=== PATIENT | female | born 1955 | race Caucasian/White ===

== ENCOUNTER 2020-05-12 06:49 | Outpatient (REF) | payer OTHER, SELFPAY ==
[2020-05-12 07:08] LABS: COVID-19 Test Negative (Negative)
== END 2020-05-12 06:50 | disposition home or self-care (01) ==
LOC: HO.LAB 06:49
PROVIDERS: Visit Provider Internal Medicine
DX: Z20.828 Contact with and (suspected) exposure to other viral communicable diseases (principal)
CPT/HCPCS: 87635; C9803

== ENCOUNTER → 2020-07-25 10:49 | Outpatient (BNVA) | payer OTHER, SELFPAY | PROVIDERS: PCP Internal Medicine; Visit Provider Orthopaedic Surgery | DX: G56.02 Carpal tunnel syndrome, left upper limb (principal) | CPT/HCPCS: 99202 ==

== ENCOUNTER 2020-08-25 13:02 | Day surgery (SDC) | payer OTHER, SELFPAY ==
--- NOTE | 2020-08-25 13:01 | MHC.SHP ---
Pre-Procedural Eval Section B Chief Complaint: carpal tunnel syndrome Allergies: Allergies Allergy/AdvReac Type Severity Reaction Status Date / Time seasonal Allergy Unknown December Verified 07/25/20 10:54 ENVIRONMENTAL Allergy Unknown SNEEZING Uncoded 01/28/20 15:41 SEASONAL ALLERGIES Allergy Unknown SNEEZING Uncoded 01/28/20 15:41 Plan I have reviewed the history and physical and performed a pertinent physical examination on my patient. No changes have occurred unless specified.
--- NOTE | 2020-08-25 13:01 | W.PM.OPN ---
Operative Note Operative Note Date of Service: 08/25/20 Narrative: Preop diagnosis: 1. Left Carpal tunnel syndrome Postop diagnosis: same Procedure: 1. Left Carpal tunnel release Surgeon: Sophia Tony MD Anesthesia: local block using 1% lidocaine with epinephrine Findings: Thickened transverse carpal ligament. EBL: Less than 5 mL Specimens: None Complications: None Disposition: Brought to recovery room in stable condition Plan: Follow-up for 7-10 days for wound check and suture removal Indications: The patient is 64 years old, with left carpal tunnel syndrome that has been unresponsive to nonoperative management. The risks and benefits of operative treatment including but not limited to risk of damage to blood vessels, nerves, tendons, infection, persistent pain, persistent symptoms, or possible need for additional surgery were discussed with the patient and the patient wishes to proceed with surgery. Procedure: Once consent was obtained a local block was performed using a combination of 1% lidocaine with epinephrine. The patient was then brought back to the operating suite and placed on the operative table in supine position. A tourniquet was applied to the proximal aspect of the left upper extremity and the limb was prepped and draped in a standard surgical fashion. Once assured that we had a good block, a 1.5 cm longitudinal incision was made centered over the carpal tunnel. The incision was made through the skin to the subcutaneous tissues using a #15 blade. Dissection was made down to the level of the transverse carpal ligament with care being taken to protect the palmar cutaneous nerve. Once the transverse carpal ligament was clearly visualized, a longitudinal incision was made in the transverse carpal ligament 1st using a #15 blade, then using tenotomy scissors under direct visualization. Care was taken to look for and protect the motor branch of the median nerve when seen in this area. Once satisfied with our carpal tunnel release the wound was copiously irrigated with normal saline and hemostasis was obtained with a brief period of local pressure. The skin edges were reapproximated with some 5.0 nylon suture material and a sterile dressing was applied. The patient appears to have tolerated the procedure well and with no complications. All digits were well vascularized at the conclusion of the case.
[2020-08-25 13:09] VITALS: BP 150/69; PULSE 82; RESP 16; TEMP 36.6; O2SAT 99; BMI 26.5
[2020-08-25 14:09] VITALS: BP 182/89; PULSE 87; RESP 16; O2SAT 99
== END 2020-08-25 14:22 | disposition home or self-care (01) ==
PROVIDERS: PCP Internal Medicine; Visit Provider Orthopaedic Surgery
PROC: (CPT 64721; principal; 2020-08-25 14:00)
DX: G56.02 Carpal tunnel syndrome, left upper limb (principal)
CPT/HCPCS: 64721

== ENCOUNTER → 2020-09-05 09:25 | Outpatient (BNVA) | payer OTHER, SELFPAY | PROVIDERS: Visit Provider Orthopaedic Surgery ==

== ENCOUNTER 2021-08-03 06:49 | Outpatient (REF) | payer OTHER, SELFPAY ==
[2021-08-03 07:06] LABS: MANUAL DIFF FLAG NO
[2021-08-03 08:09] LABS: Basophils Absolute Auto 0.1 X10*3/uL (0.0-0.2); Basophils Percent Auto 0.9 % (0-2); Eosinophils Absolute Auto 0.2 X10*3/uL (0.0-0.4); Eosinophils Percent Auto 2.8 % (0-4); Hematocrit 44.4 % (37.0-47.0); Hemoglobin 14.1 g/dl (12.0-16.0); Imm Gran Abs Auto 0.01 X10*3/uL (0.00-0.03); Imm Gran Pct Auto 0.1 % (0.0-0.4); Lymphocytes Absolute Auto 1.7 X10*3/uL (1.2-4.9); Lymphocytes Percent Auto 24.9 % (20-40); Mean Corpuscular HGB Conc 31.8 g/dl (31.0-35.0); Mean Corpuscular Hemoglobin 28.8 pg (27.0-33.0); Mean Corpuscular Volume 90.6 fL (80.0-98.0); Mean Platelet Volume 9.9 fL (9.4-12.3); Monocytes Absolute Auto 0.6 X10*3/uL (0.1-1.2); Monocytes Percent Auto 9.3 % (2-11); Neutrophils Absolute Auto 4.2 x10*3/uL (2.0-8.3); Platelet Count 273 X10*3/uL (160-400); Red Cell Distribution Width 12.6 % (11.0-16.0); White Blood Count 6.8 X10*3/uL (4.8-10.8)
[2021-08-03 08:37] LABS: Alanine Aminotransferase 19 U/L (0-31); Alkaline Phosphatase 61 U/L (39-117); Anion Gap 12 (12-20); Aspartate Amino Transferase 21 U/L (5-31); Bilirubin Total 0.7 mg/dL (0.0-1.0); Blood Urea Nitrogen 19 mg/dL (9-16); Calcium 9.8 mg/dL (8.4-10.2); Carbon Dioxide 27 mmol/L (22-29); Chloride 108 mmol/L (96-108); Cholesterol 216 mg/dL; Estimated Glomerular Filt Rate > 60; Glucose Fasting 81 mg/dL (60-99); HDL Cholesterol 50 mg/dL; LDL Cholesterol Calculated 145 mg/dl; Potassium 4.7 mmol/L (3.3-5.1); Sodium 142 mmol/L (135-145); Total Protein 6.5 g/dL (6.5-8.0); Triglycerides 109 mg/dL
== END 2021-08-03 06:50 | disposition home or self-care (01) ==
LOC: HO.LAB 06:49
PROVIDERS: PCP Internal Medicine; Visit Provider Nurse Practitioner Family
DX: E78.00 Pure hypercholesterolemia, unspecified (principal); I10 Essential (primary) hypertension
CPT/HCPCS: 36415; 80053; 80061; 85025

== ENCOUNTER 2021-08-21 07:32 | Outpatient (REF) | payer OTHER, SELFPAY ==
--- NOTE | ~2021-08-21 | MM_ITS ---
EXAMINATION: MM SCREENING DIGITAL BREAST TOMOSYNTHESIS, BILATERAL CLINICAL INFORMATION: Screening. Asymptomatic. The lifetime risk of breast cancer based on the Tyrer-Cuzick Model is 4%. COMPARISON: Mammography: 11/16/2019, 11/10/2018, 09/11/2017 TECHNIQUE: Digital breast tomosynthesis is performed in both the craniocaudal and mediolateral oblique views along with computer-aided detection (CAD). Synthesized 2D images are generated from the tomosynthesis. FINDINGS: There are scattered areas of fibroglandular density (ACR BI-RADS breast composition Category b). There are no significant masses, abnormal calcifications, or other abnormalities. Parenchymal pattern is similar to prior studies. There is no developing density or architectural abnormality. The axilla and skin contours are unremarkable. No significant changes. MM/MM tomosynthesis screening BI IMPRESSION: No mammographic evidence of malignancy. ASSESSMENT: BI-RADS 1: Negative RECOMMENDATION: Routine annual mammography screening. This patient's information was entered into a reminder system with a target due date for their next mammogram.
== END 2021-08-21 07:33 | disposition home or self-care (01) ==
LOC: HO.MAMMO 07:32
PROVIDERS: Visit Provider Nurse Practitioner Family
DX: Z12.31 Encounter for screening mammogram for malignant neoplasm of breast (principal)
CPT/HCPCS: 77063; 77067

== ENCOUNTER 2022-02-01 11:10 | Outpatient (REF) | payer OTHER, SELFPAY ==
[2022-02-01 12:18] LABS: Hematocrit 42.9 % (37.0-47.0); Hemoglobin 13.8 g/dl (12.0-16.0); Mean Corpuscular HGB Conc 32.2 g/dl (31.0-35.0); Mean Corpuscular Volume 90.1 fL (80.0-98.0); Mean Platelet Volume 9.9 fL (9.4-12.3); Platelet Count 281 X10*3/uL (160-400); Red Blood Count 4.76 X10*6/uL (4.20-5.50); Red Cell Distribution Width 12.8 % (11.0-16.0)
[2022-02-01 12:50] LABS: Alanine Aminotransferase 29 U/L (0-31); Albumin Level 4.1 g/dL (3.5-5.0); Alkaline Phosphatase 62 U/L (39-117); Anion Gap 14 (12-20); Aspartate Amino Transferase 25 U/L (5-31); Bilirubin Direct 0.2 mg/dL (0.0-0.5); Bilirubin Total 0.4 mg/dL (0.0-1.0); Blood Urea Nitrogen 20 mg/dL (9-16); Calcium 9.6 mg/dL (8.4-10.2); Carbon Dioxide 29 mmol/L (22-29); Chloride 103 mmol/L (96-108); Cholesterol 208 mg/dL; Estimated Glomerular Filt Rate > 60; Glucose Random 85 mg/dL (60-115); HDL Cholesterol 41 mg/dL; LDL Cholesterol Calculated 123 mg/dl; Sodium 142 mmol/L (135-145); Total Protein 6.6 g/dL (6.5-8.0); Triglycerides 221 mg/dL
[2022-02-01 13:05] LABS: Appearance Urine Clear; Color Urine Yellow; Glucose Urine UA Negative (Negative); Leukocyte Esterase Urine Small (1+) (Negative); Nitrite Urine Negative (Negative); UMIC TRIGGER UA YES; Urine Blood Negative (Negative); Urine Ketones Negative (Negative); Urine Protein Negative (Neg-Trace)
[2022-02-01 13:19] LABS: Bacteria Urine None Seen (None Seen); Hyaline Casts Urine 0-2 /LPF (0-2); RBC Urine 0-2 /HPF (0-2); Squamous Epithelial Cell Urine 0-2 /HPF (0-2); WBC Urine 0-5 /HPF (0-5)
== END 2022-02-01 11:11 | disposition home or self-care (01) ==
LOC: HO.LAB 11:10
PROVIDERS: PCP Internal Medicine; Visit Provider Internal Medicine
DX: Z01.818 Encounter for other preprocedural examination (principal)
CPT/HCPCS: 36415; 80048; 80061; 80076; 81001; 81003; 84443; 85027

== ENCOUNTER 2022-11-08 07:43 | Outpatient (REF) | payer OTHER, SELFPAY ==
--- NOTE | ~2022-11-08 | MM_ITS ---
EXAMINATION: MM SCREENING DIGITAL BREAST TOMOSYNTHESIS, BILATERAL CLINICAL INFORMATION: Screening. Asymptomatic. The lifetime risk of breast cancer based on the Tyrer-Cuzick Model is 4.2%. COMPARISON: Mammography: This study is compared to prior exam same back to 2019. TECHNIQUE: Digital breast tomosynthesis is performed in both the craniocaudal and mediolateral oblique views along with computer-aided detection (CAD). Synthesized 2D images are generated from the tomosynthesis. FINDINGS: There are scattered areas of fibroglandular density (ACR BI-RADS breast composition Category b). There are no significant masses, abnormal calcifications, or other abnormalities. MM/MM tomosynthesis screening BI IMPRESSION: No evidence of malignancy ASSESSMENT: BI-RADS BI-RADS 1 - Negative RECOMMENDATION: Routine annual mammography screening. 1 year F/U This patient's information was entered into a reminder system with a target due date for their next mammogram.
== END 2022-11-08 07:44 | disposition home or self-care (01) ==
LOC: HO.MAMMO 07:43
PROVIDERS: PCP Internal Medicine; Visit Provider Internal Medicine
DX: Z12.31 Encounter for screening mammogram for malignant neoplasm of breast (principal)
CPT/HCPCS: 77063; 77067

== ENCOUNTER → 2022-11-08 07:45 | Outpatient (BNV) | payer OTHER, SELFPAY | PROVIDERS: PCP Internal Medicine; Visit Provider Radiology Diagnostic Radiology | DX: Z12.31 Encounter for screening mammogram for malignant neoplasm of breast (principal) | CPT/HCPCS: 77063; 77067 ==

== ENCOUNTER 2024-07-01 07:37 | Outpatient (AMB) | payer MEDICARE, SELFPAY ==
--- NOTE | 2024-07-01 07:38 | MHC.PC.OV ---
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 The left breast mass is located at the 9 o'clock position, prompting the need for further diagnostic evaluation. Additionally, the patient reports chronic low back pain that has been present for an unspecified duration. This pain radiates to the left leg and is associated with left leg numbness and tingling. She also experiences left knee pain. There is no reported history of fever, bowel, or bladder incontinence, which often accompany significant radicular symptoms. Mother few months ago and she has mild major depression symptoms with anxiety. She was crying today. - Last mammogram conducted in 2022. - Bone density study to be ordered. - Declined pneumonia and flu vaccines. - Up to date with tetanus vaccination. - Last colonoscopy in 2017; next colonoscopy is scheduled for 2027. [facility] Medical History (Updated 07/01/24 @ 09:56 by Lottie Vargas MD) Asthma Trigger finger of right hand Carpal boss of right wrist Surgical History (Updated 07/01/24 @ 07:56 by Lottie Vargas MD) History of carpal tunnel release of both wrists History of cataract surgery Hx of colonoscopy History of bladder suspension procedure H/O tubal ligation Family History (Updated 07/01/24 @ 07:57 by Lottie Vargas MD) Mother A-fib Father No problems noted. Social History (Updated 07/01/24 @ 07:57 by Lottie Vargas MD) Housing: House Alcohol intake: current Alcohol intake frequency: holidays/special occasions only Alcohol type: wine Patient Tobacco Use Status: Never used Tobacco e-Cigarette/Vaping Use: Never Used service: No Current occupational status: employed Current occupation: right hand /RN [employer] Cognitive needs: No Hearing needs: No Vision needs: Yes Questionnaire PHQ-9 Over the last 2 weeks, how often have you been bothered by any of the following problems? 1. Little interest or pleasure in doing things: not at all 2. Feeling down, depressed, or hopeless: several days 3. Trouble falling or staying asleep, or sleeping too much: several days 4. Feeling tired or having little energy: several days 5. Poor appetite or overeating: not at all 6. Feeling bad about yourself - or that you are a failure or have let yourself or your family down: not at all 7. Trouble concentrating on things, such as reading the newspaper or watching television: not at all 8. Moving or speaking so slowly that other people could have noticed. Or the opposite - being so fidgety or restless that you have been moving around a lot more than usual: not at all 9. Thoughts that you would be better off or of hurting yourself in some way: not at all Total score: 3 Depression Screening Interpretation: Positive Depression Screening Follow-up: Existing condition and Follow-up Visit Requested Depression Screening Done: Yes 03614 - PHQ-9 Billing: Yes Source: Developed by Drs. Marvel Torres, Mary Bhat, Marito Amos and colleagues, with an educational [place] from [employer]. Thrive Questionnaire Date Thrive assessed: 07/01/24 I am a: Patient What is your living situation today?: I have a steady place to live Within the past 12 months, did the food you bought not last and you didn't have the money to get more?: Never true Within the past 12 months, did you worry whether your food would run out before you got money to buy more?: Never true Do you have trouble paying for medicines?: No Do you have trouble getting transportation to medical appointments?: No Do you have trouble paying your heating and electricity bill?: No Do you have trouble taking care of your child, family member or friend?: No Do you have trouble with day-to-day activities such as bathing, preparing meals, shopping, managing finances, etc.?: No Are you currently unemployed and looking for a job?: No Are you interested in more education?: No Please select the resources that you would like help with: None Currently or been in a relationship where the following occur: No concerns reported THRIVE Score: 0 AUDIT C Alcohol Use Questionnaire (AUDIT-C) 1. How often do you have a drink containing alcohol?: Monthly or less 2. How many drinks containing alcohol do you have on a typical day when you are drinking?: 1 or 2 3. How often do you have six or more drinks on one occasion?: Never Total Score: 1 Score Reviewed/Action Taken: No JAI-7 AMB Questionnaire JAI-7 Date JAI - 7 assessed: 07/01/24 Feeling nervous, anxious, or on edge: 1 = Several days Not being able to stop or control worryin = Not at all Worrying too much about different things: 1 = Several days Trouble relaxin = Several days Being so restless that it is hard to sit still: 0 = Not at all Becoming easily annoyed or irritable: 0 = Not at all Feeling afraid as if something awful might happen: 0 = Not at all Total JAI-7 score (0-4 normal; 5-9 mild; 10-14 moderate; 15-21 severe): 3 Source: Developed by Drs. Marvel Torres, Mary Bhat, Marito Amos and colleagues, with an educational virignia from [employer]. JAI-7 Assessment Billing JAI-7 Assessment Tool: JAI-7 Assessment 34687 Review of Systems Const All systems reviewed & are unremarkable except as noted in HPI and below ENT Denies change in voice, Denies nasal discharge and Denies sinus pain Card Denies chest pain at rest, Denies chest pain with activity, Denies edema, Denies irregular heart rhythm, Denies claudication, Denies dyspnea, Denies dyspnea on exertion, Denies orthopnea, Denies paroxysmal nocturnal dyspnea and Denies slow heart rate Resp Denies cough, Denies dyspnea and Denies dyspnea on exertion GI Denies abdominal pain, Denies change in bowel habits, Denies excessive flatus, Denies nausea and Denies vomiting Musc Reports back pain, Reports arthralgias, Reports numbness, Reports radiating pain into limb and Reports tingling Neuro Reports numbness and Reports tingling Psych Reports abnormal sleep pattern and Reports depression Physical exam (Primary Care) Vital Signs: Last Vital Signs BP 150/80 H 07/01/24 07:46 Care Plan Goal for BP management: Recheck blood pressure with nurse navigator in 3 weeks BMI result Body Mass Index 28.0 Tobacco/Smoking Status: Tobacco use Status Tobacco use date assessed 02/01/22 07/01/24 07:40 Patient Tobacco Use Status Never used Tobacco 07/01/24 07:57 Tobacco use type 12/12/21 13:13 e-Cigarette/Vaping Use Never Used 07/01/24 07:57 PHQ-9: PHQ-9 Score PHQ-9: Total score 3 07/01/24 08:08 Depression Screening Interpretation: Positive Depression Screening Follow-up: Existing condition and Follow-up Visit Requested Thrive Assessment: Date of Thrive Assessment Date Thrive assessed 07/01/24 07/01/24 07:40 Currently or been in a relationship where the following occur: No concerns reported HENMT Head: Yes normal to inspection, Yes normocephalic and Yes atraumatic Ears: external ears normal Eyes General: appearance normal, both eyes and all related structures Eyelids: Yes eyelids normal Conjunctivae: conjunctivae normal Neck Neck: Yes normal visual inspection and Yes supple Chest Breast/axilla inspection: normal inspection of the axillae Breast/axilla palpation: normal palpation of the axillae and abnormal palpation of the breast (Left breast mass at 09:00 o'clock) Resp Effort & Inspection: normal respiratory effort Auscultation: clear to auscultation bilaterally Cardio Jugular venous distension: no JVD Rate: regular rate Rhythm: regular rhythm Heart sounds: S1 normal heart sound present and S2 normal heart sound present GI Inspection: Yes normal to inspection Palpation (GI): Soft to palpation and nontender Auscultation: normal bowel sounds Skin General skin exam: no rashes or lesions noted Neuro General: no focal motor deficits Extrem General: Yes full ROM Psych Appearance: grossly normal Office Procedures Flu Questionnaire Does the patient have a severe egg allergy?: No Immunizations Fluarix Triv [id number] (PF) 45 mcg (15 mcg x 3)/0.5 mL IM syringe Performing Provider: Lottie Vargas MD [facility] Documented (not given) by: RAMA Swann on 07/01/24 08:08 Reason Not Given: Patient Refused Coding Level of Care Code Est Pt Level 4 (43622) Est Pt Prev Care >65y(36628) Diagnoses Physical exam Z00.00 Left sided sciatica M54.32 Chronic pain of left knee M25.562; G89.29 Chronicity: chronic Mass of upper inner quadrant of left breast N63.22 Breast mass location: upper inner quadrant Mild major depression, single episode F32.0 Additional Codes JAI-7 Assessment Billing - JAI-7 Assessment Tool: JAI-7 Assessment 79219 ([id number]) PHQ-9 - 21536 - PHQ-9 Billing: Yes ([id number]) Time Spent (min) 40 Assessment & Plan Assessment & Plan (1) Physical exam: Comment: Colonoscopy with Dr. Álvarez on 12/2017. Next f/u in 10 years. Eye exam 09/2021 Dental exam 09/2021 Due mammo, pap Code(s): Z00.00 - Encounter for general adult medical examination without abnormal findings Category: Medical (2) Left sided sciatica: Code(s): M54.32 - Sciatica, left side Category: Medical (3) Left knee pain: Code(s): M25.562 - Pain in left knee Category: Medical Qualifiers: Chronicity: chronic Qualified Code(s): M25.562 - Pain in left knee; G89.29 - Other chronic pain (4) Left breast mass: Code(s): N63.20 - Unspecified lump in the left breast, unspecified quadrant Category: Medical Qualifiers: Breast mass location: upper inner quadrant Qualified Code(s): N63.22 - Unspecified lump in the left breast, upper inner quadrant (5) Mild major depression, single episode: Code(s): F32.0 - Major depressive disorder, single episode, mild Category: Medical Plan - Order a diagnostic mammogram for further evaluation of the left breast mass. - Initiate treatment with gabapentin for one month to assess pain improvement related to low back pain with radiculopathy. - Order x-rays for assessment of structural issues contributing to left knee pain. - Discuss additional imaging or follow-up as necessary based on the results. Patient was informed and verbally consented to the use of an ambient scribe for clinic note documentation during this visit. I have discussed with the patient the plan to obtain a diagnostic mammogram due to the presence of the left breast mass. The importance of ruling out any significant pathology was emphasized. For the complaints of low back pain with radiculopathy, I have decided to initiate gabapentin to address neuropathic components of the pain. We also plan to assess the left knee pain with x-rays to elucidate any underlying joint or degenerative issues. The patient was informed of the need to follow up on the outcomes of these investigations and possible adjustments to her treatment plan. Orders: Orders Influenza [id number] Immunization Today Z23 - Encounter for immunization MM diagnostic mammo BI Today N63.20 - Unspecified lump in the left breast, unspecified quadrant US breast LT complete Today N63.20 - Unspecified lump in the left breast, unspecified quadrant XR knee LT 2V Today M25.562 - Pain in left knee XR DEXA axial skeleton Today Z78.0 - Asymptomatic menopausal state Comprehensive [place]. Panel Fast Today Z00.00 - Encounter for general adult medical examination without abnormal findings Lipid Panel Today Z00.00 - Encounter for general adult medical examination without abnormal findings XR lumbar spine 2-3V Today M54.32 - Sciatica, left side Medications: New gabapentin 100 mg PO BEDTIME 30 caps 0RF 30 days M54.32 - Sciatica, left side Patient Instructions: - Schedule and attend the diagnostic mammogram. - Begin taking gabapentin as directed and monitor for any changes in pain status. - Undergo x-rays for the left knee and report any worsening of symptoms. - Keep up to date with health maintenance screenings and consider vaccinations as recommended.
[2024-07-01 07:46] VITALS: BP 150/80; BMI 28.0
== END 2024-07-01 08:06 | disposition home or self-care (01) ==
PROVIDERS: PCP Internal Medicine; Visit Provider Internal Medicine
DX: Z00.00 Encounter for general adult medical examination without abnormal findings (principal); M54.32 Sciatica, left side; M25.562 Pain in left knee; F32.0 Major depressive disorder, single episode, mild; G89.29 Other chronic pain; N63.22 Unspecified lump in the left breast, upper inner quadrant; Z23 Encounter for immunization

== ENCOUNTER → 2024-07-01 07:37 | Outpatient (BNVA) | payer MEDICARE, SELFPAY | PROVIDERS: PCP Internal Medicine; Visit Provider Internal Medicine | DX: Z00.01 Encounter for general adult medical examination with abnormal findings (principal); M54.32 Sciatica, left side; M25.562 Pain in left knee; G89.29 Other chronic pain; N63.22 Unspecified lump in the left breast, upper inner quadrant; F32.0 Major depressive disorder, single episode, mild | CPT/HCPCS: 96127; 99212; 99397 ==

== ENCOUNTER 2024-07-07 06:41 | Outpatient (REF) | payer MEDICARE, SELFPAY ==
--- NOTE | ~2024-07-07 | XR_ITS ---
CLINICAL HISTORY: M25.562 - Pain in left knee Exam: AP and lateral views of the left knee. Comparison: None. Findings: Bony alignment is anatomic. No fracture or joint effusion. Moderate degenerative change of the patellofemoral joint with joint space narrowing and osteophyte formation. Medial and lateral compartments are well-maintained. Impression: Moderate patellofemoral joint DJD. This document has been electronically signed by: Sunny Melchor MD on 07/07/2024 07:22:59
--- NOTE | ~2024-07-07 | XR_ITS ---
CLINICAL HISTORY: M54.32 - Sciatica, left side Exam: AP, lateral, and spot lateral views of the lumbar spine. Comparison: None. Findings: Minimal convex right upper lumbar curvature. Lateral view demonstrates 3 mm of anterolisthesis of L4 on L5. No acute fracture. Moderate degenerative disc disease at T12-L1 and L1-2 with disc space narrowing and osteophytic ridging. Moderate facet joint degenerative change within the lower lumbar spine. Impression: Chronic changes as above. No acute fracture. If the patient has persistent or worsening left radiculopathy, MRI of the lumbar spine would be suggested to evaluate for neural impingement. This document has been electronically signed by: Sunny Melchor MD on 07/07/2024 07:21:59
[2024-07-07 08:35] LABS: Alanine Aminotransferase 27 U/L (0-31); Albumin Level 4.1 g/dL (3.5-5.0); Alkaline Phosphatase 70 U/L (39-117); Anion Gap 11 (12-20); Aspartate Amino Transferase 27 U/L (5-31); Bilirubin Total 0.4 mg/dL (0.0-1.0); Blood Urea Nitrogen 16 mg/dL (9-16); Calcium 9.7 mg/dL (8.4-10.2); Carbon Dioxide 25 mmol/L (22-29); Chloride 110 mmol/L (96-108); Cholesterol 208 mg/dL (<200); Estimated Glomerular Filt Rate > 60; Glucose Fasting 87 mg/dL (60-99); HDL Cholesterol 41 mg/dL (>40); LDL Cholesterol Calculated 137 mg/dL (<100); Sodium 142 mmol/L (135-145); Total Protein 7.3 g/dL (6.5-8.0); Triglycerides 150 mg/dL (<150)
== END 2024-07-07 06:42 | disposition home or self-care (01) ==
LOC: HO.XRAY 06:41
PROVIDERS: PCP Internal Medicine; Visit Provider Internal Medicine
DX: M25.562 Pain in left knee (principal); M54.32 Sciatica, left side; Z00.00 Encounter for general adult medical examination without abnormal findings
CPT/HCPCS: 36415; 72100; 73560; 80053; 80061

== ENCOUNTER → 2024-07-07 06:50 | Outpatient (BNV) | payer MEDICARE, SELFPAY | PROVIDERS: PCP Internal Medicine; Visit Provider Radiology Diagnostic Radiology | DX: M54.32 Sciatica, left side (principal); M17.12 Unilateral primary osteoarthritis, left knee | CPT/HCPCS: 72100; 73560 ==

== ENCOUNTER 2024-08-06 08:02 | Outpatient (REF) | payer MEDICARE, SELFPAY ==
--- NOTE | ~2024-08-06 | MM_ITS ---
EXAMINATION: DXA BONE DENSITY AXIAL HISTORY: Estrogen deficiency TECHNIQUE: [employer] Dual energy absorptiometry (DEXA) of the lumbar spine, total left hip, and femoral neck was performed. COMPARISON: There are no prior studies for comparison. FINDINGS: The bone mineral density of the lumbar spine is 0.838 with a T-score of -2.9, and a Z-score of -1.4. This is indicative of osteoporosis. The bone mineral density of the left total hip is 0.798 with a T-score of -1.7, and a Z-score of -0.5. This is indicative of osteopenia. The bone mineral density of the left femoral neck is 0.696 with a T-score of -2.5, and a Z-score of -1.0. This is indicative of osteoporosis. MM/XR DEXA axial skeleton IMPRESSION: Based on bone mineral density, and according to World Health Organization (WHO) criteria, the diagnosis is consistent with osteoporosis. All bone density values are in grams per centimeter squared (g/cm2). Statistically, 68% of repeat scans fall within 1 SD (+/- 0.010 g/cm2 for AP spine L1-L4) and 1 SD (+/- 0.012 g/cm2 for femur total) FRAX is a trademark of the [employer]'s [place] [employer] Metabolic [employer] Disease, a World Health Organization (WHO) Collaborating Center. Electronically signed by: Marvel Fuller MD 08/06/2024 08:44 AM EDT
== END 2024-08-06 08:03 | disposition home or self-care (01) ==
LOC: HO.MAMMO 08:02
PROVIDERS: PCP Internal Medicine; Visit Provider Internal Medicine
DX: Z13.820 Encounter for screening for osteoporosis (principal); Z78.0 Asymptomatic menopausal state
CPT/HCPCS: 77080

== ENCOUNTER → 2024-08-06 08:07 | Outpatient (BNV) | payer MEDICARE, SELFPAY | PROVIDERS: PCP Internal Medicine; Visit Provider Radiology Diagnostic Radiology | DX: E28.39 Other primary ovarian failure (principal) | CPT/HCPCS: 77080 ==

== ENCOUNTER 2024-08-10 08:20 | Outpatient (REF) | payer MEDICARE, SELFPAY ==
--- NOTE | ~2024-08-10 | MM_ITS ---
EXAMINATION: MM DIAGNOSTIC DIGITAL BREAST TOMOSYNTHESIS, BILATERAL CLINICAL INFORMATION: Patient had a left breast lump at 9:00 and went to see her PCP since then the area came to head and popped and patient cannot feel any palpable lump. No palpable lump is felt today. COMPARISON: Mammography: Comparison is made with relevant prior exams. TECHNIQUE: Digital breast mammography with tomosynthesis is performed in both the craniocaudal and mediolateral oblique views along with computer-aided detection (CAD). FINDINGS: There are scattered areas of fibroglandular density (ACR BI-RADS breast composition Category b). There are no significant masses, abnormal calcifications, or other abnormalities. Results are provided to the patient at time of visit by the technologist. MM/MM tomosynthesis diagnostic BI IMPRESSION: No mammographic abnormality bilateral breasts. Patient could not feel any palpable lump today therefore no ultrasound was performed. If patient feels palpable lump a diagnostic ultrasound can be ordered and performed. ASSESSMENT: BI-RADS BI-RADS 1 - Negative RECOMMENDATION: 1 year F/U This patient's information was entered into a reminder system with a target due date for their next mammogram. Electronically signed by: Samina Castellano DO 08/10/2024 09:04 AM EDT
== END 2024-08-10 08:21 | disposition home or self-care (01) ==
LOC: HO.MAMMO 08:20
PROVIDERS: PCP Internal Medicine; Visit Provider Internal Medicine
DX: N63.25 Unspecified lump in the left breast, overlapping quadrants (principal)
CPT/HCPCS: 77062; 77066

== ENCOUNTER → 2024-08-10 08:30 | Outpatient (BNV) | payer MEDICARE, SELFPAY | PROVIDERS: PCP Internal Medicine; Visit Provider Internal Medicine | DX: N63.25 Unspecified lump in the left breast, overlapping quadrants (principal) | CPT/HCPCS: 77066; G0279 ==

== ENCOUNTER 2024-08-13 08:34 | Emergency (ER) | payer MEDICARE, SELFPAY ==
[2024-08-13 08:42] VITALS: BP 136/65; PULSE 117; RESP 20; TEMP 35.8; O2SAT 98; BMI 28.3
[2024-08-13 08:58] LABS: MANUAL DIFF FLAG NO
[2024-08-13 09:02] LABS: Basophils Absolute Auto 0.1 X10*3/uL (0.0-0.2); Basophils Percent Auto 0.4 % (0-2); Eosinophils Absolute Auto 0.1 X10*3/uL (0.0-0.4); Eosinophils Percent Auto 0.7 % (0-4); Hematocrit 44.6 % (37.0-47.0); Hemoglobin 15.1 g/dl (12.0-16.0); Imm Gran Abs Auto 0.07 X10*3/uL (0.00-0.03); Imm Gran Pct Auto 0.4 % (0.0-0.4); Lymphocytes Absolute Auto 1.2 X10*3/uL (1.2-4.9); Mean Corpuscular HGB Conc 33.9 g/dl (31.0-35.0); Mean Corpuscular Hemoglobin 29.3 pg (27.0-33.0); Mean Corpuscular Volume 86.4 fL (80.0-98.0); Mean Platelet Volume 9.3 fL (9.4-12.3); Monocytes Absolute Auto 0.9 X10*3/uL (0.1-1.2); Monocytes Percent Auto 5.5 % (2-11); Neutrophils Absolute Auto 14.2 x10*3/uL (2.0-8.3); Platelet Count 246 X10*3/uL (160-400); Red Blood Count 5.16 X10*6/uL (4.20-5.50); Red Cell Distribution Width 12.9 % (11.0-16.0); White Blood Count 16.5 X10*3/uL (4.8-10.8)
[2024-08-13 09:16] LABS: Alanine Aminotransferase 23 U/L (0-31); Albumin Level 3.7 g/dL (3.5-5.0); Alkaline Phosphatase 69 U/L (39-117); Anion Gap 11 (12-20); Aspartate Amino Transferase 24 U/L (5-31); Bilirubin Direct 0.2 mg/dL (0.0-0.5); Bilirubin Total 0.5 mg/dL (0.0-1.0); Blood Urea Nitrogen 24 mg/dL (9-16); Calcium 9.3 mg/dL (8.4-10.2); Carbon Dioxide 23 mmol/L (22-29); Chloride 109 mmol/L (96-108); Creatinine Clr Calc Pharmacy 38.8; Estimated Glomerular Filt Rate 41; Glucose Random 128 mg/dL (60-115); Lipase 19 U/L (8-78); Potassium 3.5 mmol/L (3.3-5.1); Sodium 139 mmol/L (135-145); Total Protein 6.6 g/dL (6.5-8.0)
--- NOTE | 2024-08-13 09:47 | ED_ITS ---
HPI - Nausea/Vomiting/Diarrhea General Chief complaint: Nausea/Vomiting/Diarrhea Stated complaint: weakness diarrhea Time Seen by Provider: 08/13/24 09:36 Source: patient, RN notes reviewed and old records reviewed Mode of arrival: ambulatory History of Present Illness ED Provider: Dori Eisenberg PA-C HPI Narrative: 68-year-old female with a past medical history of asthma, presenting to the ED complaining of watery nonbloody diarrhea x 3 days. Admits was being treated for UTI on Keflex since Saturday, however develop diarrhea, & self stopped antibiotic. Reports lower abdominal discomfort / cramping and tenesmus, with generalized fatigue, nausea, and vomiting x2. denies fever, chills, dysuria/hematuria. Related Data Previous Rx's ?Medication ?Instructions ?Recorded gabapentin 100 mg capsule 100 mg PO BEDTIME 30 days #30 caps 07/01/24 losartan 25 mg tablet 25 mg PO DAILY 30 days #30 tabs 07/06/24 vancomycin 125 mg capsule 125 mg PO QID 10 days #40 caps 08/13/24 (Vancocin) Allergies Allergy/AdvReac Type Severity Reaction Status Date / Time Seasonal Allergies Allergy Unknown Sneezing Verified 08/13/24 08:46 Review of Systems 2 Review of Systems: Yes all other systems are reviewed and are negative Constitutional: Constitutional: Reports as per [facility] Past Medical History Attestation statement: The following information was validated with the patient. Source: old records reviewed Medical History Asthma Trigger finger of right hand Carpal boss of right wrist Surgical History History of carpal tunnel release of both wrists History of cataract surgery Hx of colonoscopy History of bladder suspension procedure H/O tubal ligation Family History Family History Mother A-fib Father No problems noted. Social History Social History Housing: House Alcohol intake: current Alcohol intake frequency: holidays/special occasions only Alcohol type: wine Patient Tobacco Use Status: Never used Tobacco e-Cigarette/Vaping Use: Never Used Advance Directives: Yes Advance Directives Information Provided: No Advance Directives on File: No Do you have a plan to hurt others: No Plan service: No Current occupational status: employed Current occupation: right hand /RN [employer] Cognitive needs: No Hearing needs: No Vision needs: Yes Physical Exam 2 Vital Signs: Vital Signs: Last Vital Signs Temp 99.8 F 08/13/24 14:29 Pulse 87 08/13/24 14:29 Resp 20 08/13/24 14:29 BP 127/60 08/13/24 14:29 Pulse Ox 97 08/13/24 14:29 O2 Del Method Room Air 08/13/24 14:08 BMI result Body Mass Index 28.3 Const: General: cooperative, healthy appearing and no acute distress O rientation/consciousness: patient oriented x3 Limitations: no limitations HEENT: Head: Yes normal to inspection and Yes atraumatic Ears: hearing grossly normal bilaterally General nose exam: Normal external nose present Face and sinus: Yes normal facial exam Eyes: General: appearance normal, both eyes and all related structures EOM: EOMs intact bilaterally Neck: Neck: Yes normal visual inspection and Yes no meningeal signs Resp: Effort & Inspection: normal respiratory effort and no respiratory distress Auscultation: clear to auscultation bilaterally Cardio: Rate: regular rate and tachycardic Heart sounds: S1 normal heart sound present and S2 normal heart sound present GI: Inspection: Yes normal to inspection Palpation (GI): Soft to palpation, nontender, no guarding and not rigid : General: Yes no CVA tenderness Back/Spine/Pelvis: Back: no CVA tenderness Skin: Rashes: no rashes Wounds: no wounds Neuro: General: patient oriented x3, tone normal and no meningeal signs C ranial nerves: Yes CN's II-XII intact bilaterally Gait exam (Neuro): Normal gait present Extrem: General: Yes normal to inspection Course Course Course Narrative: -1020-- leukocytosis of 16.5. BUN elevated to 24 consistent with dehydration. Labs otherwise reassuring > We will obtain lactic/ blood cultures. Will avoid initiating IV antibiotics at this time until C diff results. -1122-- UA negative. No evidence of infection at this time. Continued low suspicion for severe sepsis -1211-- C diff positive > p.o. vancomycin ordered. Low suspicion for toxic megacolon with nontender abdomen. -1358-- repeat leukocytosis improved to 11.5. Patient tolerating p.o. Plan for discharge with p.o. vancomycin and PCP follow-up Results discussed with patient including worrisome signs and symptoms and strict return precautions, and when to return to the emergency department. They verbalized understanding and feel safe for discharge at this time. Medications Administered Discontinued Medications Generic Name Dose Route Start Last Admin Trade Name Freq PRN Reason Stop Dose Admin Dicyclomine HCl 20 mg 08/13/24 10:56 08/13/24 11:16 Dicyclomine Hcl 10 Mg Capsule PO 08/13/24 10:57 20 mg ONCE ONE Administration Sodium Chloride 1,000 mls @ 999 mls/hr 08/13/24 09:45 08/13/24 11:16 Ns IV 08/13/24 10:45 Infused .Q1H1M KATHY Infusion Sodium Chloride 1,000 mls @ 999 mls/hr 08/13/24 10:00 08/13/24 13:00 Ns IV 08/13/24 11:00 Infused .Q1H1M KATHY Infusion Vancomycin HCl 125 mg 08/13/24 12:09 08/13/24 12:38 Vancomycin Hcl 125 Mg Capsule PO 08/13/24 12:10 125 mg ONCE ONE Administration Medical Decision Making Medical Decision Making [facility] Narrative: [10:11] 68-year-old female with a past medical history of asthma, presenting to the ED complaining of watery nonbloody diarrhea x 3 days. Admits was being treated for UTI on Keflex since Saturday, however develop diarrhea, & self stopped antibiotic. Reports lower abdominal discomfort / cramping and tenesmus, with generalized fatigue, nausea, and vomiting x2. on exam tachycardic, NAD, nontoxic appearing, abdomen is soft/nontender, no CVAT. Concern for C diff vs gastroenteritis / acute diarrhea vs dehydration vs continued UTI. low suspicion for severe sepsis at this time. Low suspicion for acute appendicitis / diverticulitis or renal stone Plan: Labs, UA, C diff, EKG, IVF, re-evaluate Please refer to course for remaining clinical decision making, interpretation of labs/imaging results, and discussions with consultants and/or family members. Differential Diagnosis Differential Diagnoses: The differential diagnosis associated with the presentation includes As above Admission/Observation Consideration of admission/observation: Escalation of care including admission/observation considered Lab Data [facility] Lab Attestation statement: I reviewed the patient's lab results. 08/13/24 12:45 08/13/24 08:51 Labs: Lab Results 08/13/24 08/13/24 08/13/24 Range/Units 08:51 09:12 09:51 WBC 16.5 H (4.8-10.8) X10*3/uL RBC 5.16 (4.20-5.50) X10*6/uL Hgb 15.1 (12.0-16.0) g/dl Hct 44.6 (37.0-47.0) % MCV 86.4 (80.0-98.0) fL MCH 29.3 (27.0-33.0) pg MCHC 33.9 (31.0-35.0) g/dl RDW 12.9 (11.0-16.0) % Plt Count 246 (160-400) X10*3/uL MPV 9.3 L (9.4-12.3) fL Immature Gran % (Auto) 0.4 (0.0-0.4) % Neut % (Auto) 86.0 H (45-73) % Lymph % (Auto) 7.0 L (20-40) % [place] % (Auto) 5.5 (2-11) % Eos % (Auto) 0.7 (0-4) % Baso % (Auto) 0.4 (0-2) % Lymph # (Auto) 1.2 (1.2-4.9) X10*3/uL [place] # (Auto) 0.9 (0.1-1.2) X10*3/uL Eos # (Auto) 0.1 (0.0-0.4) X10*3/uL Baso # (Auto) 0.1 (0.0-0.2) X10*3/uL Abs Immat Gran (auto) 0.07 H (0.00-0.03) X10*3/uL Absolute Neuts (auto) 14.2 H (2.0-8.3) x10*3/uL Absolute Nucleated RBC 0.000 (0.0-0.012) X10*3/uL Nucleated RBC % (auto) 0.0 (0.0-0.2) /100WBC Sodium 139 (135-145) mmol/L Potassium 3.5 (3.3-5.1) mmol/L Chloride 109 H (96-108) mmol/L Carbon Dioxide 23 (22-29) mmol/L Anion Gap 11 L (12-20) BUN 24 H (9-16) mg/dL Creatinine 1.29 (0.5-1.4) mg/dL Estim Creat Clear Calc 38.8 Estimated GFR 41 Random Glucose 128 H (60-115) mg/dL Lactic Acid 2.0 (0.5-2.0) mmol/L Calcium 9.3 (8.4-10.2) mg/dL Magnesium 2.1 (1.6-2.6) mg/dL Total Bilirubin 0.5 (0.0-1.0) mg/dL Direct Bilirubin 0.2 (0.0-0.5) mg/dL AST 24 (5-31) U/L ALT 23 (0-31) U/L Alkaline Phosphatase 69 (39-117) U/L Total Protein 6.6 (6.5-8.0) g/dL Albumin 3.7 (3.5-5.0) g/dL Lipase 19 (8-78) U/L Urine Color Urine Appearance Urine pH (5.0-9.0) Ur Specific [place] (1.005-1.025) Urine Protein (Neg-Trace) mg/dL Urine Glucose (UA) (Negative) mg/dL Urine Ketones (Negative) mg/dL Urine Blood (Negative) Urine Nitrite (Negative) Ur Leukocyte Esterase (Negative) Urine RBC (0-2) /HPF Urine WBC (0-5) /HPF Ur Squamous Epith Cells (0-2) /HPF Urine Bacteria (None Seen) Hyaline Casts (0-2) /LPF C. difficile Tox B Gene POSITIVE A* (Negative) C. difficile Toxin A&B Positive A* (Negative) C. difficile Interpret SEE NOTE 08/13/24 08/13/24 Range/Units 10:56 12:45 WBC 11.5 H (4.8-10.8) X10*3/uL RBC 4.37 (4.20-5.50) X10*6/uL Hgb 12.7 (12.0-16.0) g/dl Hct 38.4 (37.0-47.0) % MCV 87.9 (80.0-98.0) fL MCH 29.1 (27.0-33.0) pg MCHC 33.1 (31.0-35.0) g/dl RDW 12.9 (11.0-16.0) % Plt Count 196 (160-400) X10*3/uL MPV 9.2 L (9.4-12.3) fL Immature Gran % (Auto) 0.4 (0.0-0.4) % Neut % (Auto) 82.9 H (45-73) % Lymph % (Auto) 8.6 L (20-40) % Atlantic % (Auto) 6.8 (2-11) % Eos % (Auto) 1.0 (0-4) % Baso % (Auto) 0.3 (0-2) % Lymph # (Auto) 1.0 L (1.2-4.9) X10*3/uL Atlantic # (Auto) 0.8 (0.1-1.2) X10*3/uL Eos # (Auto) 0.1 (0.0-0.4) X10*3/uL Baso # (Auto) 0.0 (0.0-0.2) X10*3/uL Abs Immat Gran (auto) 0.05 H (0.00-0.03) X10*3/uL Absolute Neuts (auto) 9.6 H (2.0-8.3) x10*3/uL Absolute Nucleated RBC 0.000 (0.0-0.012) X10*3/uL Nucleated RBC % (auto) 0.0 (0.0-0.2) /100WBC Sodium (135-145) mmol/L Potassium (3.3-5.1) mmol/L Chloride (96-108) mmol/L Carbon Dioxide (22-29) mmol/L Anion Gap (12-20) BUN (9-16) mg/dL Creatinine (0.5-1.4) mg/dL Estim Creat Clear Calc Estimated GFR Random Glucose (60-115) mg/dL Lactic Acid (0.5-2.0) mmol/L Calcium (8.4-10.2) mg/dL Magnesium (1.6-2.6) mg/dL Total Bilirubin (0.0-1.0) mg/dL Direct Bilirubin (0.0-0.5) mg/dL AST (5-31) U/L ALT (0-31) U/L Alkaline Phosphatase (39-117) U/L Total Protein (6.5-8.0) g/dL Albumin (3.5-5.0) g/dL Lipase (8-78) U/L Urine Color Yellow Urine Appearance Clear Urine pH 5.5 (5.0-9.0) Ur Specific [place] 1.010 (1.005-1.025) Urine Protein Trace (Neg-Trace) mg/dL Urine Glucose (UA) Negative (Negative) mg/dL Urine Ketones Negative (Negative) mg/dL Urine Blood Negative (Negative) Urine Nitrite Negative (Negative) Ur Leukocyte Esterase Trace H (Negative) Urine RBC 0-2 (0-2) /HPF Urine WBC 0-5 (0-5) /HPF Ur Squamous Epith Cells 3-5 (0-2) /HPF Urine Bacteria None Seen (None Seen) Hyaline Casts 3-5 (0-2) /LPF C. difficile Tox B Gene (Negative) C. difficile Toxin A&B (Negative) C. difficile Interpret Radiology Impression Discussion of test interpretation with radiology: I have reviewed the radiologist's reading. External Record Review External record reviewed: Inpatient record, Office record, Outpatient record, Prior outpatient labs, Prior outpatient radiology, Primary care record and Outside ED record Tests considered The following testing was considered but not selected: As above Prescription Management I considered prescription management with: Pain Medication and Antibiotic Chronic Conditions Patient?s care impacted by: Other Social Determinants Patient?s care significantly limited by Social Determinants of Health including: Other Social Determinant of Health Discharge Plan Discharge Clinical Impression: Clostridium difficile infection Patient Disposition: Home, Self-Care Instructions: C. Diff (Clostridioides Difficile) Infection (ED) Additional Instructions: you have C diff. Please stop taking previously prescribed antibiotic Start taking vancomycin Make sure you are staying hydrated and replenishing your losses Please have close follow up with her doctor If her symptoms persist, worsen, you have black or bloody stool, difficulty or inability to tolerate by mouth return to the ED Prescriptions: New vancomycin [Vancocin] 125 mg capsule 125 mg PO QID 10 Days Qty: 40 0RF No Action losartan 25 mg tablet 25 mg PO DAILY 30 Days Qty: 30 2RF gabapentin 100 mg capsule 100 mg PO BEDTIME 30 Days Qty: 30 0RF Referrals: Lottie Tran MD [Primary Care Provider] - 5 days Interventions: ED Discharge Assessment Last Done: 08/13/24 14:29 Discharge Date/Time: 08/13/24 14:37 Print Language: Bahraini
--- NOTE | 2024-08-13 09:49 | ECG_ITS ---
Test Reason : TACHYCARDIA Blood Pressure : */* mmHG Vent. Rate : 86 BPM Atrial Rate : 86 BPM P-R Int : 138 ms QRS Dur : 90 ms QT Int : 374 ms P-R-T Axes : 66 41 47 degrees QTcB Int : 447 ms Normal sinus rhythm RSR' or QR pattern in V1 suggests right ventricular conduction delay T wave abnormality, consider anterior ischemia Abnormal ECG When compared with ECG of 23-May-2011 11:46, No significant changes seen Referred By: Dori Eisenberg Electronically Signed By: ZOFIA CHAMPION
[2024-08-13] MEDS: 0.9 % Sodium Chloride 1,000 ML 999 ML IV ×2 (09:56→11:16)
[2024-08-13 10:01] LABS: Magnesium 2.1 mg/dL (1.6-2.6)
[2024-08-13 10:38] VITALS: BP 133/57; PULSE 85; RESP 20; TEMP 37.2; O2SAT 98
--- NOTE | 2024-08-13 10:39 | MHC.EDTECH ---
EKG delayed due to EKG machine in use
--- NOTE | 2024-08-13 10:39 | MHC.EDTECH ---
Patient aware of order for urine sample. Patient states she will let us know when she needs to urinate so we can collect the sample. Patient resting, states she is comfortable. Call mena placed within reach. Visitor at bedside.
[2024-08-13 11:05] LABS: Appearance Urine Clear; Color Urine Yellow; Glucose Urine UA Negative (Negative); Leukocyte Esterase Urine Trace (Negative); Nitrite Urine Negative (Negative); PH 5.5 (5.0-9.0); UMIC TRIGGER UACC YES; Urine Blood Negative (Negative); Urine Ketones Negative (Negative); Urine Protein Trace mg/dL (Neg-Trace)
[2024-08-13 11:12] LABS: Bacteria Urine None Seen (None Seen); RBC Urine 0-2 /HPF (0-2); WBC Urine 0-5 /HPF (0-5)
[2024-08-13] MEDS: Dicyclomine HCl 10 MG CAPSULE 20 MG PO (11:16)
[2024-08-13 11:48] LABS: CDiff Gene PCR POSITIVE (Negative)
[2024-08-13 12:17] VITALS: BP 114/56; PULSE 78; RESP 20; O2SAT 97
[2024-08-13 12:31] LABS: CDiff Toxin Positive (Negative)
[2024-08-13 12:32] LABS: CDIFF Internal ctrl Dots and bkg OK (V)
[2024-08-13] MEDS: vancomycin HCL 125 MG CAPSULE PO (12:38)
[2024-08-13 12:49] LABS: MANUAL DIFF FLAG NO
[2024-08-13 12:50] LABS: Basophils Percent Auto 0.3 % (0-2); Eosinophils Absolute Auto 0.1 X10*3/uL (0.0-0.4); Hematocrit 38.4 % (37.0-47.0); Hemoglobin 12.7 g/dl (12.0-16.0); Imm Gran Abs Auto 0.05 X10*3/uL (0.00-0.03); Imm Gran Pct Auto 0.4 % (0.0-0.4); Lymphocytes Percent Auto 8.6 % (20-40); Mean Corpuscular HGB Conc 33.1 g/dl (31.0-35.0); Mean Corpuscular Hemoglobin 29.1 pg (27.0-33.0); Mean Corpuscular Volume 87.9 fL (80.0-98.0); Mean Platelet Volume 9.2 fL (9.4-12.3); Monocytes Absolute Auto 0.8 X10*3/uL (0.1-1.2); Monocytes Percent Auto 6.8 % (2-11); Neutrophils Absolute Auto 9.6 x10*3/uL (2.0-8.3); Neutrophils Percent Auto 82.9 % (45-73); Platelet Count 196 X10*3/uL (160-400); Red Blood Count 4.37 X10*6/uL (4.20-5.50); Red Cell Distribution Width 12.9 % (11.0-16.0); White Blood Count 11.5 X10*3/uL (4.8-10.8)
[2024-08-13 14:08] VITALS: BP 127/60; PULSE 87; RESP 20; TEMP 37.7; O2SAT 97
[2024-08-13 14:29] VITALS: BP 127/60; PULSE 87; RESP 20; TEMP 37.7; O2SAT 97
== END 2024-08-13 14:37 | disposition home or self-care (01) ==
PROVIDERS: Physician Assistant; Emergency Provider Emergency Medicine; PCP Internal Medicine
DX: A04.72 Enterocolitis due to Clostridium difficile, not specified as recurrent (principal); R10.30 Lower abdominal pain, unspecified; R11.2 Nausea with vomiting, unspecified
CPT/HCPCS: 36415; 80048; 80076; 81001; 83605; 83690; 83735; 85025; 87040; 87324; 87493; 93005; 96360; 96361; 99284

== ENCOUNTER → 2024-08-13 09:49 | Outpatient (BNV) | payer MEDICARE, SELFPAY | PROVIDERS: Emergency Provider Emergency Medicine; PCP Internal Medicine; Visit Provider Internal Medicine | DX: R94.31 Abnormal electrocardiogram [ECG] [EKG] (principal); R00.0 Tachycardia, unspecified | CPT/HCPCS: 93010 ==

== ENCOUNTER 2024-08-20 13:48 | Outpatient (AMB) | payer MEDICARE, SELFPAY ==
--- NOTE | 2024-08-20 13:51 | A.OFFPC_ITS ---
Vital Signs 08/20/24 13:54 Height 5 ft 2 in Weight 159 lb BMI 29.1 BP 134/80 Blood Pressure Location Lt brachial Position Sitting Intake Visit Reasons: follow up Slope Hoist Operator Required: No Accompanied by: Self / Same As Patient Allergies Seasonal Allergies Allergy (Unknown, Verified 08/20/24 14:05) Sneezing Medication List - Last Reconciled 08/20/24 by Lottie Vargas MD gabapentin 100 mg PO BEDTIME 30 days losartan 25 mg PO DAILY 30 days vancomycin (Vancocin) 125 mg PO QID 10 days Tobacco use date assessed: 08/20/24 Fall risk assessment: No Falls in past year Last assessed Fall Risk: 08/20/24 Dental Screening Dental Screen Date: 08/20/24 Did you have a dental visit in the last 12 months?: Yes Did you have a dental problem in the last 6 months where you did not have access to dental care?: No Was dental information given to patient?: Patient has dentist HPI HPI Comments History of Present Illness Details The patient is a 68-year-old female presenting with management concerns for diarrhea due to C diff secondary to Keflex and associated symptoms. Her diarrhea, which prompted an emergency room visit, was accompanied by dehydration but has since improved. Currently, she experiences intermittent bladder spasms, which have been alleviated with [id number] medications. Diarrhea is now stable, with reduced frequency and no need for laxatives. The patient has a history of urinary tract infections and has been utilizing vancomycin for diarrhea treatment without prior allergic reactions to Keflex. Her blood pressure management includes losartan, and she reports blood pressure levels improving post-illness. Emotional aspects include a significant grief reaction after her mother's passing, impacting her perception of symptoms. [facility] Medical History Asthma Trigger finger of right hand Carpal boss of right wrist Surgical History History of carpal tunnel release of both wrists History of cataract surgery Hx of colonoscopy History of bladder suspension procedure H/O tubal ligation Family History Mother A-fib Father No problems noted. Social History Housing: House Alcohol intake: current Alcohol intake frequency: holidays/special occasions only Alcohol type: wine Patient Tobacco Use Status: Never used Tobacco e-Cigarette/Vaping Use: Never Used Second Hand Smoke Exposure: No service: No Current occupational status: employed Current occupation: right hand /RN [employer] Current occupational exposures/hazards: No Cognitive needs: No Hearing needs: No Vision needs: Yes Questionnaire Thrive Questionnaire Date Thrive assessed: 07/01/24 I am a: Patient What is your living situation today?: I have a steady place to live Within the past 12 months, did the food you bought not last and you didn't have the money to get more?: I choose not to answer this question Within the past 12 months, did you worry whether your food would run out before you got money to buy more?: I choose not to answer this question Do you have trouble paying for medicines?: I choose not to answer this question Do you have trouble getting transportation to medical appointments?: I choose not to answer this question Do you have trouble paying your heating and electricity bill?: I choose not to answer this question Do you have trouble taking care of your child, family member or friend?: I choose not to answer this question Do you have trouble with day-to-day activities such as bathing, preparing meals, shopping, managing finances, etc.?: I choose not to answer this question Are you currently unemployed and looking for a job?: No Are you interested in more education?: I choose not to answer this question Please select the resources that you would like help with: None Currently or been in a relationship where the following occur: No concerns reported THRIVE Score: 0 JAI-7 AMB Questionnaire JAI-7 Date JAI - 7 assessed: 07/01/24 Source: Developed by Drs. Marvel Torres, Mary Bhat, Marito Amos and colleagues, with an educational [place] from [employer]. Review of Systems Const All systems reviewed & are unremarkable except as noted in HPI and below Card Denies chest pain at rest, Denies chest pain with activity, Denies edema, Denies irregular heart rhythm, Denies claudication, Denies dyspnea, Denies dyspnea on exertion, Denies orthopnea, Denies paroxysmal nocturnal dyspnea and Denies slow heart rate Resp Denies cough, Denies dyspnea and Denies dyspnea on exertion Neuro Denies lack of coordination Physical exam (Primary Care) Vital Signs: Last Vital Signs BP 134/80 08/20/24 13:54 BMI result Body Mass Index 29.1 Tobacco/Smoking Status: Tobacco use Status Tobacco use date assessed 08/20/24 08/20/24 13:58 Patient Tobacco Use Status Never used Tobacco 08/20/24 13:58 Tobacco use type 12/12/21 13:13 e-Cigarette/Vaping Use Never Used 08/20/24 13:58 Thrive Assessment: Date of Thrive Assessment Date Thrive assessed 07/01/24 08/20/24 13:58 Currently or been in a relationship where the following occur: No concerns reported Resp Effort & Inspection: normal respiratory effort Auscultation: clear to auscultation bilaterally Cardio Jugular venous distension: no JVD Rate: regular rate Rhythm: regular rhythm Heart sounds: S1 normal heart sound present and S2 normal heart sound present Extrem General: Yes full ROM Coding Level of Care Code Est Pt Level 4 (46103) Complex EM visit Add On G2211 Diagnoses Hospital discharge follow-up Z09 C. difficile diarrhea A04.72 Mild major depression, single episode F32.0 Essential hypertension I10 Time Spent (min) 21 Assessment & Plan Assessment & Plan (1) Hospital discharge follow-up: Code(s): Z09 - Encounter for follow-up examination after completed treatment for conditions other than malignant neoplasm Category: Medical (2) C. difficile diarrhea: Code(s): A04.72 - Enterocolitis due to Clostridium difficile, not specified as recurrent Category: Medical (3) Mild major depression, single episode: Code(s): F32.0 - Major depressive disorder, single episode, mild Category: Medical (4) Essential hypertension: Code(s): I10 - Essential (primary) hypertension Category: Medical Plan The patient is advised to continue with the current treatment regimen, including the completion of the vancomycin course for diarrhea. Continued use of losartan is warranted given the stabilization of blood pressure. As the patient reports improvement, hydration strategies will be maintained. Post-treatment, the use of probiotics is recommended to support gastrointestinal health. In addressing emotional health, the discussion included understanding her grief reaction and normalizing her concerns given her recent experiences. Overall, reassurance was offered to support her emotional and physical recovery. Patient was informed and verbally consented to the use of an ambient scribe for clinic note documentation during this visit. I discussed with the patient the management strategies for her diarrhea and associated symptoms, emphasizing the importance of completing her current antibiotic regimen with vancomycin. We discussed blood pressure management, continuing losartan, and the role of probiotics to support digestive health once her antibiotic course is complete. I validated her concerns about emotional distress, relating them to recent stressful experiences and providing reassurance. Follow-up communication or queries can be exchanged through the messaging portal. The patient is aware and agreeable to the proposed medical management plan. Medications: Discontinued gabapentin Discontinued Reason: Patient Completed Course 100 mg PO BEDTIME 30 days 30 caps 0RF M54.32 - Sciatica, left side Patient Instructions: - Continue taking vancomycin as prescribed until completion. - Hydrate well to support recovery from dehydration. - Take losartan as directed for blood pressure management. - Use probiotics post-antibiotic course to aid digestive health. - Seek emotional support if needed and be mindful of grief-related emotions impacting health. - Monitor for any return of concerning symptoms and contact for follow-up if necessary.
[2024-08-20 13:54] VITALS: BP 134/80; BMI 29.1
== END 2024-08-20 14:17 | disposition home or self-care (01) ==
LOC: HO.HMCH 13:49
PROVIDERS: PCP Internal Medicine; Visit Provider Internal Medicine
DX: Z09 Encounter for follow-up examination after completed treatment for conditions other than malignant neoplasm (principal); A04.72 Enterocolitis due to Clostridium difficile, not specified as recurrent; F32.0 Major depressive disorder, single episode, mild; I10 Essential (primary) hypertension

== ENCOUNTER → 2024-08-20 13:48 | Outpatient (BNVA) | payer MEDICARE, SELFPAY | PROVIDERS: PCP Internal Medicine; Visit Provider Internal Medicine | DX: N32.89 Other specified disorders of bladder (principal); F32.0 Major depressive disorder, single episode, mild; I10 Essential (primary) hypertension; Z09 Encounter for follow-up examination after completed treatment for conditions other than malignant neoplasm; Z86.19 Personal history of other infectious and parasitic diseases | CPT/HCPCS: 99212 ==

== ENCOUNTER 2024-09-08 11:09 | Outpatient (REF) | payer MEDICARE, SELFPAY ==
[2024-09-08 12:36] LABS: CDiff Gene PCR POSITIVE (Negative)
[2024-09-08 13:04] LABS: CDiff Toxin Positive (Negative)
[2024-09-08 13:05] LABS: CDIFF Internal ctrl Dots and bkg OK (V)
== END 2024-09-08 11:10 | disposition home or self-care (01) ==
LOC: HO.LNP 11:09
PROVIDERS: Visit Provider Internal Medicine
DX: A04.72 Enterocolitis due to Clostridium difficile, not specified as recurrent (principal)
CPT/HCPCS: 87324; 87493